=== PATIENT | male | born 1950 | race Caucasian/White ===

== ENCOUNTER 2023-07-28 11:25 | Emergency (ER) | payer OTHER, SELFPAY ==
--- NOTE | 2023-07-28 11:27 | ECG_ITS ---
[facility] Test Date: 2023-07-28 Pat Name: Quinton Bourgeois Department: Room: Gender: Male Training And Development Officer: : 1950 Requested By: Christy Adam Order Number: [id number] Rhonda MD: Malcolm Beckman M.D. Measurements Intervals [place] Rate: 66 P: 56 AK: 191 QRS: 49 QRSD: 108 T: 45 QT: 386 QTc: 405 Interpretive Statements SINUS RHYTHM NONSPECIFIC ST & T-WAVE ABNORMALITY No previous ECG available for comparison Electronically Signed On 07-28-2023 13:59:57 AUTOMOTIVE WORKER by Malcolm Beckman M.D. [id number]
--- NOTE | 2023-07-28 11:27 | XR_ITS ---
WS: [id number] Portable AP upright chest, 07/28/2023 Clinical Data: cp Comparison: None. Findings: No nodules, masses or effusions are seen. The heart is normal. The pulmonary vascularity is not increased. No pneumonia or pneumothorax is seen. The aortic arch and descending thoracic aorta s how tortuosity. There are monitor leads on the chest wall. Impression: Atherosclerosis.
[2023-07-28 12:00] VITALS: BP 168/91; PULSE 68; RESP 17; TEMP 36.4; O2SAT 99; BMI 26.3
[2023-07-28 12:15] LABS: Basophils % 0.2 %; Eosinophils # 0.2 10^3/uL (0.0-0.8); Eosinophils % 3.8 %; Hematocrit 41.1 % (37-53); Lymphocytes # 1.4 10^3/uL (0.8-4.8); Lymphocytes % 27.6 %; Mean Corpuscular HGB Conc 32.4 g/dL (30-55); Mean Corpuscular Hemoglobin 27.3 pg (27-33); Mean Corpuscular Volume 84.4 fl (82-101); Mean Platelet Volume 8.8 fL (7.4-10.4); Monocytes # 0.4 10^3/uL (0.2-0.9); Monocytes % 6.9 %; Neutrophils # 3.09 10^3/uL (1.8-7.7); Neutrophils % 61.3 %; Nucleated Red Blood Cells % 0 %; Platelet Count 277 10^3/cmm (157-399); Red Blood Count 4.87 10^6/uL (3.85-5.65); Red Cell Distribution Width 12.5 % (12.1-15.1); White Blood Count 5.04 10^3/uL (3.29-11.43)
--- NOTE | 2023-07-28 12:16 | W.ED.CHESTPA ---
HPI - Chest Pain General: Chief Complaint: Chest Pain Stated Complaint: Chest pains Time Seen by Provider: 07/28/23 12:16 Source: patient Mode of arrival: ambulatory History of Present Illness: 72-year-old male presents emergency room with chest pain worse with inspiration no significant shortness of breath. Many times he takes deep breath he has discomfort in the left side of his chest has had a productive cough the last couple of days. Some low-grade's fever with headache at night. No vomiting or diarrhea patient has no known history of coronary artery disease MD complaint: chest pain Onset (ago): day(s) Timing of current episode: episodic Onset: during rest Pain location: left chest Pain radiation: none Severity: mild Quality: sharp Relieving factors: nothing Exacerbating factors: inspiration Associated symptoms: Reports dyspnea; Deny abdominal pain, diaphoresis, fever(s), leg edema, nausea, palpitations, sense of impending doom, syncope or vomiting Review of Systems Const: Denies: fever(s), chills or diaphoresis Card: Denies: chest pain, palpitations or syncope Resp: Reports: dyspnea GI: Denies: abdominal pain, nausea or vomiting : Denies: dysuria, urinary frequency or urinary urgency Musc: Denies: neck pain or back pain Skin/Breast: Denies: rash Physical Exam Const: COMMON NORMALS: no acute distress GENERAL APPEARANCE: cooperative and comfortable ORIENTATION/CONSCIOUSNESS: Yes awake, Yes oriented to person, Yes oriented to place and Yes oriented to time HENMT: COMMON NORMALS: normocephalic, atraumatic and hearing grossly normal bilaterally HEAD & SCALP: normocephalic and atraumatic Resp: COMMON NORMALS: normal respiratory effort, No retractions, No use of accessory muscles and clear to auscultation bilaterally AUSCULTATION: clear to auscultation bilaterally Cardio: COMMON NORMALS: regular rate, regular rhythm and No murmurs present (Cardio) RATE: regular rate RHYTHM: regular rhythm GI: COMMON NORMALS: Soft to palpation and No hepatosplenomegaly present AUSCULTATION: Yes normoactive bowel sounds PALPATION: Yes Soft to palpation, No Tenderness to palpation present (GI), No Guarding due to palpation present (GI) and Yes No hepatosplenomegaly present Extremity: COMMON NORMALS: normal to inspection, capillary refill normal, no clubbing, cyanosis or edema, no calf tenderness and no pedal edema Neuro: SENSORIUM/ORIENTATION: Yes oriented to person, Yes oriented to place and Yes oriented to time Skin: COMMON NORMALS: no rashes or lesions noted GENERAL SKIN EXAM: no rashes or lesions noted Course Vital Signs: Vital signs: Vital Signs Temperature 97.6 F 07/28/23 12:00 Pulse Rate 63 07/28/23 13:20 Respiratory Rate 17 07/28/23 12:00 Blood Pressure 143/88 07/28/23 13:20 Pulse Oximetry 97 07/28/23 13:20 Oxygen Delivery Me thod Room Air 07/28/23 12:00 MDM - Chest Pain Medical Decision Making EKG shows no acute changes troponins unremarkable white count normal no leukocytosis. Discharge home pleuritic-like chest pain probably from bronchitis given has had a productive cough will start on oral antibiotics follow-up with primary care return if is worsening or changes symptoms Medical Records I reviewed the patient's medical records. Lab Data I reviewed the patient's lab results. 07/28/23 12:08 07/28/23 12:08 Laboratory Results WBC 5.04 10^3/uL (3.29-11.43) 07/28/23 12:08 RBC 4.87 10^6/uL (3.85-5.65) 07/28/23 12:08 Hgb 13.30 g/dL (11.27-16.99) 07/28/23 12:08 Hct 41.1 % (37-53) 07/28/23 12:08 MCV 84.4 fl (82-101) 07/28/23 12:08 MCH 27.3 pg (27-33) 07/28/23 12:08 MCHC 32.4 g/dL (30-55) 07/28/23 12:08 RDW 12.5 % (12.1-15.1) 07/28/23 12:08 Plt Count 277 10^3/cmm (157-399) 07/28/23 12:08 MPV 8.8 fL (7.4-10.4) 07/28/23 12:08 Neut % (Auto) 61.3 % 07/28/23 12:08 Lymph % (Auto) 27.6 % 07/28/23 12:08 Evangeline % (Auto) 6.9 % 07/28/23 12:08 Eos % (Auto) 3.8 % 07/28/23 12:08 Baso % (Auto) 0.2 % 07/28/23 12:08 Neut # (Auto) 3.09 10^3/uL (1.8-7.7) 07/28/23 12:08 Lymph # (Auto) 1.4 10^3/uL (0.8-4.8) 07/28/23 12:08 Evangeline # (Auto) 0.4 10^3/uL (0.2-0.9) 07/28/23 12:08 Eos # (Auto) 0.2 10^3/uL (0.0-0.8) 07/28/23 12:08 Baso # (Auto) 0.0 10^3/uL (0.0-0.1) 07/28/23 12:08 Nucleated RBC % (auto) 0 % 07/28/23 12:08 Nucleated RBCs # 0.0 /100WBC 07/28/23 12:08 PT 13.80 SECONDS (12.1-14.9) 07/28/23 12:08 INR 1.03 (0.8-1.2) 07/28/23 12:08 Sodium 136 mmol/L (136-145) 07/28/23 12:08 Potassium 4.1 mmol/L (3.5-5.1) 07/28/23 12:08 Chloride 100 mmol/L (98-107) 07/28/23 12:08 Carbon Dioxide 26 mmol/L (22-29) 07/28/23 12:08 Anion Gap 14.1 (5-19) 07/28/23 12:08 BUN 13 mg/dL (8-23) 07/28/23 12:08 Creatinine 0.9 mg/dL (0.7-1.2) 07/28/23 12:08 GFR Calculation Not Reportable 07/28/23 12:08 Glucose 80 mg/dL (65-115) 07/28/23 12:08 Calculated Osmolality 281 mOsm/kg (285-295) L 07/28/23 12:08 Calcium 8.4 mg/dL (8.5-10.5) L 07/28/23 12:08 Total Bilirubin 0.4 mg/dL (0.15-1.2) 07/28/23 12:08 AST 16 U/L (0-40) 07/28/23 12:08 ALT 15 U/L (0-41) 07/28/23 12:08 Alkaline Phosphatase 82 U/L (40-130) 07/28/23 12:08 Troponin T Baseline 9 ng/L (0-15) 07/28/23 12:08 Total Protein 6.5 g/dL (6.6-8.7) L 07/28/23 12:08 Albumin 3.9 g/dL (3.5-5.2) 07/28/23 12:08 Globulin 2.6 g/dL (1.3-4.6) 07/28/23 12:08 Lipase 23 U/L (13-60) 07/28/23 12:08 All radiology interpretation(s) finalized by discharge Discharge Plan Discharge Patient Disposition: Home Clinical Impression: Atypical chest pain, Bronchitis Condition: Stable Prescriptions: New doxycycline hyclate 100 mg capsule 100 mg PO BID 10 Days Qty: 20 0RF Discharge Orders: Discharge ED (Routine); Ordered 07/28/23 Ordered By: Alfredo Spangler Referrals: Maia Newman MD [Primary Care Provider] - Discharge Diet: Usual diet Discharge Activity: Resume usual activity Patient Instructions: Opioid Safety, Pain Management Activity Restrictions/Additional Instructions: Thank you for choosing [facility] for your healthcare needs today. Please realize this is an emergency room and that we are providing you with a medical screening exam and this may not be complete and all inclusive of all the testing and or work up that you may need to determine your ailment or severity of your illness. It is very important that you follow up as instructed or that you return to the Emergency Department should you have concerns or if your condition changes or worsens in any way. You were seen today for chest discomfort. Chest discomfort by your description sounds more like pleuritic-like chest pain. Your cardiac enzymes and EKG were normal. Will start you on a course of doxycycline follow-up with your primary care doctor if not improving Coding Level of Care Code ED Housekeeping Supervisor [facility]
[2023-07-28 12:28] LABS: INR 1.03 (0.8-1.2)
[2023-07-28 12:37] LABS: Troponin(5th) Baseline 9 ng/L (0-15)
[2023-07-28 12:38] LABS: Alanine Aminotransferase 15 U/L (0-41); Albumin Level 3.9 g/dL (3.5-5.2); Alkaline Phosphatase 82 U/L (40-130); Anion Gap 14.1 (5-19); Aspartate Amino Transferase 16 U/L (0-40); Blood Urea Nitrogen 13 mg/dL (8-23); Calcium 8.4 mg/dL (8.5-10.5); Carbon Dioxide 26 mmol/L (22-29); Chloride 100 mmol/L (98-107); Globulin 2.6 g/dL (1.3-4.6); Glucose 80 mg/dL (65-115); Lipase 23 U/L (13-60); Osmolality Calculated 281 mOsm/kg (285-295); Potassium 4.1 mmol/L (3.5-5.1); Sodium 136 mmol/L (136-145); Total Bilirubin 0.4 mg/dL (0.15-1.2); Total Protein 6.5 g/dL (6.6-8.7)
[2023-07-28 13:20] VITALS: BP 143/88; PULSE 63; O2SAT 97
== END 2023-07-28 13:22 | disposition home or self-care (01) ==
PROVIDERS: Emergency Medicine; Emergency Provider Family Medicine; PCP Family Medicine
DX: R07.89 Other chest pain (principal); J40 Bronchitis, not specified as acute or chronic
CPT/HCPCS: 36415; 71045; 80053; 83690; 84484; 85025; 85610; 93005; 99285